=== PATIENT | male | born 1950 | race Caucasian/White ===

== ENCOUNTER 2017-10-28 19:52 | Emergency (ER) | payer MEDICARE, BC ==
--- NOTE | 2017-10-28 20:09 | Emergency Department Record ---
History of Present Illness - General Stated Complaint: LT SIDE PAIN EXTENDING DOWNWARD TOWARD GROIN Source: Patient Mode of Arrival: Ambulatory Limitations: No limitations - History of Present Illness Initial Comments: 67 yo male presents to ED for evaluation or LLQ pain that radiates to the left groin. Patient denies testicular pain symptoms, but does report a history hernia repair previously (in [place], [place]) with similar symptoms. Patient denies change in stools, denies nausea/vomiting symptoms. Patient denies health problems other than DM, does report previous history of kidney stones ( on the right) previously as well. MD Complaint: Abdominal pain -: Days(s) Location: LLQ Radiation: Other (groin) Severity: Moderate Consistency: Constant Improves With: Nothing Worsens With: Nothing Associated Symptoms: Denies other symptoms Treatments Prior to Arrival: NSAIDs - Related Data Home Medications Medication Instructions Recorded Confirmed Last Taken Amlodipine Besylate [Norvasc] 10 mg PO QHS 10/28/17 10/28/17 Unknown Aspirin [Aspir-Low] 81 mg PO QHS 10/28/17 10/28/17 Unknown Allergies Allergy/AdvReac Type Severity Reaction Status Date / Time Sulfa (Sulfonamide Allergy PT UNSURE Verified 10/28/17 20:12 Antibiotics) OF REACTION morphine AdvReac cold sweats Verified 10/28/17 20:12 Review of Systems Constitutional: Denies: Chills, Fever, Malaise, Night sweats Eyes: Denies: Eye discharge, Eye pain ENT: Denies: Congestion, Ear pain, Epistaxis Respiratory: Denies: Cough, Dyspnea Cardiovascular: Denies: Chest pain, Dyspnea on exertion Endocrine: Denies: Fatigue, Heat or cold intolerance Gastrointestinal: Reports: Abdominal pain. Denies: Nausea, Vomiting Genitourinary: Denies: Testicular pain, Testicular mass Musculoskeletal: Denies: Arthralgia, Back pain, Gout, Joint swelling Skin: Denies: Bruising, Change in color Neurological: Denies: Abnormal gait, Confusion, Headache, Seizure Psychiatric: Denies: Anxiety Hematological/Lymphatic: Denies: Anemia, Blood Clots Physical Exam - General General Appearance: Alert, Oriented x3, Cooperative, Mild distress Limitations: No limitations - Head Head exam: Atraumatic, Normocephalic, Normal inspection Head exam detail: negative: Abrasion, Contusion, Giles's sign, General tenderness, Hematoma, Laceration - Eye Eye exam: Normal appearance. negative: Conjunctival injection, Periorbital swelling, Periorbital tenderness, Scleral icterus - ENT Ear exam: negative: Auricular hematoma, Auricular trauma Nasal Exam: negative: Active bleeding, Discharge, Dried blood, Foreign body Mouth exam: negative: Drooling, Laceration, Muffled voice, Tongue elevation - Neck Neck exam: Normal inspection. negative: Meningismus, Tenderness - Respiratory Respiratory exam: Normal lung sounds bilaterally. negative: Rales, Respiratory distress, Rhonchi, Stridor - Cardiovascular Cardiovascular Exam: Regular rate, Normal rhythm, Normal heart sounds - GI/Abdominal GI/Abdominal exam: Soft, Tenderness (TTP to the LLQ on examination, no pain with palpation of the testicle, no scrotal fullness left. ). negative: Rebound , Rigid - Rectal Rectal exam: Deferred - exam: Normal inspection. negative: Testicular tenderness, Urethral discharge - Extremities Extremities exam: Normal inspection. negative: Calf tenderness, Pedal edema, Tenderness - Back Back exam: Denies: CVA tenderness (R), CVA tenderness (L) - Neurological Neurological exam: Alert, Normal gait, Oriented X3 - Psychiatric Psychiatric exam: Normal affect, Normal mood - Skin Skin exam: Normal color. negative: Abrasion Type of lesion: negative: abrasion Course Vital Signs 10/28/17 19:59 Temperature 98.3 F Pulse Rate [ 66 Pulse Ox Probe] Respiratory 20 Rate Blood Pressure 136/83 [Left Arm] Pulse Ox 98 - Reevaluation(s) Reevaluation #1: 10/28/17 20:59 Labs reviewed and are grossly unremarkable for an acute process. Reevaluation #2: 10/28/17 21:22 UA reviewed: 3-6 RBCs 0-2 WBCs 0-2 Epithelial cells Bacteria: None CT Abdomen and Pelvis: Perinephric fat stranding left kidney Recently passed calculus in the urinary bladder Patient was updated on all results, reports that he is feeling much better, and appears stable for discharge at this time. Medical Decision Making - Lab Data Result diagrams: 10/28/17 20:20 10/28/17 20:20 Disposition Disposition: Discharge Clinical Impression: Kidney stone on left side Disposition: Home, Self-Care Condition: (2) Stable Instructions: Kidney Stones (ED) Additional Instructions: Return to ED if your symptoms worsen or if you have any concerns. Follow-up with your family doctor in 3-5 days as directed. Time of Disposition: 21:27 Quality - Quality Measures Quality Measures: N/A - Blood Pressure Screening Does Patient Have Any of the Following: No Blood Pressure Classification: Pre-Hypertensive BP Reading Systolic Measurement: 136 Diastolic Measurement: 83 Screening for High Blood Pressure: < Pre-Hypertensive BP, F/U Documented > [ [id number]] Pre-Hypertensive Follow-up Interventions: Referral to alternative/primary care provider.
[2017-10-28] MEDS: KETOROLAC 30 MG/ML VIAL IVP ONE (20:23)
[2017-10-28] MEDS: 0.9 % SODIUM CHLORIDE 1000ML 1,000 ML IV SCH (20:23)
[2017-10-28 20:27] LABS: BASO % 0.2 % (0-6); EOS % 1.2 % (0-6); HEMATOCRIT 46.7 % (42.0-52.0); HEMOGLOBIN 16.1 gm/dl (14.0-18.0); MEAN CELL VOLUME 92.1 fl (81-97); MEAN CORPUSCULAR HEMOGLOBIN 31.8 pg (27-33); MEAN CORPUSCULAR HGB CONC 34.5 g/dl (32-36); MEAN PLATELET VOLUME 8.8 fl (7.4-10.4); MONO % 8.6 % (0-9); PLATELET COUNT 253 K/uL (130-400); RED BLOOD COUNT 5.07 M/uL (4.40-5.70); RED CELL DISTRIBUTION WIDTH 13.2 % (11.5-14.5); WHITE BLOOD COUNT W/O DIFF 10.6 K/uL (4.2-12.2)
[2017-10-28 20:36] LABS: CREATININE 1.3 mg/dL (0.7-1.2)
[2017-10-28 20:37] LABS: BILIRUBIN,TOTAL 0.8 mg/dL (0.2-1.0); TOTAL PROTEIN 6.3 g/dL (6.6-8.7)
[2017-10-28 20:42] LABS: ALBUMIN 4.2 g/dL (4.0-5.0)
[2017-10-28 21:13] LABS: URINE APPEARANCE CLEAR; URINE BACTERIA NONE SEEN; URINE BILIRUBIN NEGATIVE (NEGATIVE); URINE BLOOD MODERATE (NEGATIVE); URINE COLOR YELLOW; URINE EPITHELIAL CELLS 0 - 2 (FEW); URINE GLUCOSE (UA) NEGATIVE (NEGATIVE); URINE KETONE NEGATIVE (NEGATIVE); URINE LEUKOCYTE ESTERASE NEGATIVE (NEGATIVE); URINE NITRITE NEGATIVE (NEGATIVE); URINE PROTEIN NEGATIVE (NEGATIVE); URINE UROBILINOGEN 0.2 E.U./dL (0.20 - 1.00); URINE WBC 0 - 2 (0-2/hpf)
== END 2017-10-28 21:44 | disposition home or self-care (01) ==
LOC: ER 19:52
DX: N20.0 Calculus of kidney (principal); I10 Essential (primary) hypertension; Z87.442 Personal history of urinary calculi
CPT/HCPCS: 74176; 80053; 81001; 83690; 85025; 96361; 96374; 99284; J1885; J7030